=== PATIENT | male | born 2000 | race Caucasian/White ===

== ENCOUNTER 2024-09-06 01:54 | Emergency (ER) | payer SELFPAY ==
--- NOTE | ~2024-09-06 | CT_ITS ---
CT scan of the Neck Technique: 2.5 mm axial scans were obtained through the neck after intravenous administration of 75 c c Omnipaque 350. Coronal and sagittal reconstructions of the neck were obtained. Dose reduction techn ique was used on this scan by utilizing automated exposure control and iterative reconstruction techn ique. The dose-length product (DLP) was 409.33 mGy-cm. Clinical History: Right tonsillar swelling Findings: There is no evidence of any significant cervical lymphadenopathy. Several small, nonenlarged jugulo- digastric and posterior cervical lymph nodes are noted bilaterally. Parapharyngeal spaces appear norm al bilaterally. The parotid and submandibular glands appear normal. The pharyngeal mucosal spaces appear normal. No soft tissue masses are seen in the neck. The thyroid gland appears normal. Images of the lung apices reveal no abnormalities. Impression: No significant abnormalities noted. Reviewed, dictated and finalized at [facility]. Impression: No significant abnormalities noted.
[2024-09-06 01:59] VITALS: BP 134/94; PULSE 83; RESP 15; TEMP 36.9; O2SAT 100
--- NOTE | 2024-09-06 02:15 | ED.GENADULT ---
HPI - General Adult General Chief complaint: Unspecified Stated complaint: something lodged in throat Time Seen by Provider: 09/06/24 02:14 Source: patient, family and other Mode of arrival: ambulatory Limitations: no limitations History of Present Illness HPI narrative: Patient (he/him pronouns) presents with feeling like something is stuck in his throat. He has been coughing recently even prior to this but then while eating bread at [facility] felt like something got stuck. He has been trying to cough to bring it up. He has attempted to stick his finger down his throat a few times to force himself to vomit and states he can feel something hard. He has had a sore throat for several days prior to this. No fevers or chills. This has never happened before. Has not had to follow with gastroenterology or Otolaryngology. No recurrent strep episodes as a child and has not had a tonsillectomy. He had laryngitis earlier this week. Related Data Allergies Allergy/AdvReac Type Severity Reaction Status Date / Time No Known Allergies Allergy Verified 09/06/24 01:58 Exam Narrative: GENERAL: Well-appearing, well-nourished, and in no acute distress. HEAD: Normocephalic, atraumatic. EYES: Non injected, non icteric ENT: Nares clear, no rhinorrhea or epistaxis. Gross auditory acuity intact. Moist mucous membranes. Mild right tonsillar hypertrophy with slight redundant tissue behind it within which is a small white dot, suspect embedded tonsillar stone. Uvula midline. Moist mucous membranes Posterior oropharynx with mild hyperemia but no exudate. With induced maneuvers, patient's epiglottis can be visualized which is slightly enlarged but within range of normal variant, not obstructing and normal color. Vocal cords present and normal. Cartilage and arytenoids also visualized. No obstruction. NECK: Supple. No meningismus. Mild lymphadenopathy. No dysphonia. CHEST: Speaking in full sentences. No respiratory distress. Occasionally coughing. Airway patent. HEART: Regular rate and rhythm. . ABDOMEN: Soft, nondistended. No rigidity or guarding. Not peritoneal EXTREMITIES: Normal range of motion. No lower extremity edema. SKIN: Warm, dry, no rash. NEURO: No focal deficits. Alert and oriented. Answering questions. Following commands. Normal speech without aphasia or dysarthria. PSYCH: Normal mood and affect. Course Vital Signs Vital signs: Vital Signs Temperature 98.5 F 09/06/24 01:59 Pulse Rate 83 09/06/24 01:59 Respiratory Rate 15 09/06/24 01:59 Blood Pressure 134/94 H 09/06/24 01:59 Pulse Oximetry 100 09/06/24 01:59 Oxygen Delivery Room Air 09/06/24 01:59 Temperature 98.5 F 09/06/24 01:59 Pulse Rate 85 09/06/24 07:40 Respiratory Rate 18 09/06/24 07:40 Blood Pressure 120/69 09/06/24 07:40 Pulse Oximetry 97 09/06/24 07:40 Oxygen Delivery Room Air 09/06/24 01:59 Medical Decision Making MDM Narrative Medical decision making narrative: Patient presents with sensation of something launch/stuck in his throat. In the emergency department he is afebrile acceptable vital signs elevated diastolic blood pressure however. No leukocytosis. Strep negative. Viral swab negative. Workup largely unremarkable. Patient still having a slight sensation. Again, on initial exam nothing appreciated. During more focused exam, epiglottis is able to be visualized but not obstructed. Ondansetron administered to suppress gag reflex and oral benzocaine used to anesthetize posterior oropharynx. With patient holding 3Mac tongue blade, tongue held down and partial laryngoscopy performed for which structures are visualized without concern for acute process. There does appear to possibly be a tonsillar stone within redundant tissue behind right tonsil which is mildly hypertrophic. Other than this, I suspect patient has a degree of inflammation and thus the resulting sensation, especially after posterior oropharynx/larynx has had trauma from finger/tongue depressor insertion, etc. Patient given 1 time dose of IV steroids. Counseled on the workup which included visualization of structures, labs, and CT imaging. Patient and mother are reassured. I did encourage follow up with ENT if persistent symptoms , for flexible laryngoscopy/nasopharyngoscopy. Verified understanding and in agreement with the plan. Stable for discharge. Differential Diagnosis Differential Diagnosis: Food bolus, tonsillar stone, strep pharyngitis, tonsillitis, peritonsillar abscess , retropharyngeal abscess, compressive mass, epiglottitis Vital Signs Vital Signs: Vital Signs Temperature 98.5 F 09/06/24 01:59 Pulse Rate 83 09/06/24 01:59 Respiratory Rate 15 09/06/24 01:59 Blood Pressure 134/94 H 09/06/24 01:59 Pulse Oximetry 100 09/06/24 01:59 Oxygen Delivery Room Air 09/06/24 01:59 Temperature 98.5 F 09/06/24 01:59 Pulse Rate 85 09/06/24 07:40 Respiratory Rate 18 09/06/24 07:40 Blood Pressure 120/69 09/06/24 07:40 Pulse Oximetry 97 09/06/24 07:40 Oxygen Delivery Room Air 09/06/24 01:59 Lab Data Lab results reviewed: Yes I reviewed the patient's lab results. Lab results narrative: Normal BNP 09/06/24 03:36 09/06/24 03:36 Labs: Lab Results 09/06/24 Range/Units 03:36 WBC 8.8 (4.5-10.0) K/mm3 RBC 5.65 (4.6-6.20) M/mm3 Hgb 16.7 (14.0-18.0) g/dL Hct 50.7 (42.0-52.0) % MCV 89.7 (80-100) fl MCH 29.6 (26-34) pg MCHC 32.9 (32-36) g/dl RDW 12.2 (11.5-14.5) % Plt Count 216 (150-375) k/mm3 MPV 10.4 (7.4-10.4) fl Immature Gran % (Auto) 0.2 (0-0.5) % Neut % (Auto) 64.0 (45.5-73.1) % Lymph % (Auto) 24.7 (18.3-44.2) % [place] % (Auto) 10.3 H (2.6-8.5) % Eos % (Auto) 0.5 (0-4.4) % Baso % (Auto) 0.3 (0.2-1.2) % Lymph # (Auto) 2.17 (0.9-3.2) K/mm3 [place] # (Auto) 0.9 H (0.1-0.6) K/mm3 Eos # (Auto) 0.0 (0-0.3) K/mm3 Baso # (Auto) 0.0 (0.0-0.1) K/mm3 Abs Immat Gran (auto) 0.02 (0.00-0.031) K/mm3 Absolute Neuts (auto) 5.6 (1.3-6.7) K/mm3 Absolute Nucleated RBC 0.000 (0.0-0.012) K/mm3 Nucleated RBC % 0.0 (0.0-0.2) % Sodium 141 (137-145) mmol/L Potassium 3.7 (3.4-5.0) mmol/L Chloride 104 (98-107) mmol/L Carbon Dioxide 30 (22-30) mmol/L Anion Gap 7 (4-12) mmol/L BUN 11 (9-20) mg/dL Creatinine 0.85 (0.7-1.3) mg/dL Estim Creat Clear Calc 116 ml/min Estimated GFR > 60 (59 - ) Glucose 110 (65-110) mg/dL Calcium 9.2 (8.4-10.2) mg/dL Influenza A (RT-PCR) Negative (Negative) Influenza B (RT-PCR) Negative (Negative) RSV (RT-PCR) Negative (Negative) SARS-CoV-2 RNA (RT-PCR) Negative (Negative) Group A Strep (PCR) Not detected (Negative) Imaging Data Radiologist's impression: Impressions Soft Tissue Neck CT 09/06/24 06:27 Impression: No significant abnormalities noted. Discharge Plan Discharge Clinical Impression: Hypertrophy of tonsil, Tonsil stone Patient Disposition: Home Condition: Stable Instructions: Antibiotic Form, Tonsillitis (ED) Additional Instructions: As we discussed, although the tonsil is slightly swollen and with a possible tonsllar stone, the airway and other associated structures are normal in appearance. You received a dose of steroid. This should help with the inflammation. If not improving over the next several days, you can follow-up with the pearl diver/ornamental metal worker apprentice listed below. Return to the emergency department any new worsening uncontrolled symptoms. Patient Language: Yoruba Follow-up/Referrals: Chris Gilbert MD [Physician] - UNKNOWN,DOCTOR [Primary Care Provider] - Stand Alone Forms: Work/School Release IP Time of Disposition: 07:48
--- OUTSIDE RECORDS SUMMARY | 2024-09-06 02:40 | XMS_ITS | Clinical Summary ---
Author Organization [facility] Address [address] [place] [address] Care Team Providers Care Tilting Head Band Sawyer Name Role Phone No, Physician Primary Care Provider [phone] Allergies No known active allergies Medications syringe, disposable, (BD Luer-Charlee Syringe) 1 mL syringe Use to inject testosterone as directed 25 each 11/26/19 23 Active needle, disp, 23 gauge (BD Specialty Use [place]) 23 gauge x 1 1/4 needle Use to inject testosterone intramuscularly 25 each 11/26/19 23 Active alcohol swabs pads, medicated Cleanse skin before injection 100 each 11/26/19 23 Active syringe with needle (BD Luer-Charlee Syringe) 3 mL 25 gauge x 1 syringe Use to inject Testosterone IM every 7 days. 25 each 12/13/19 23 Active insulin syringe-needle U-100 1 mL 29 gauge syringe Use to inject 1-4 times daily as directed 100 each 06/09/19 24 Active syringe, disposable, 3 mL syringe Use one per week to draw and inject testosterone as directed. 12 each 06/12/19 24 Active testosterone cypionate (DEPO-TESTOTER ONE) 200 mg/mL injection Inject 0.5 mL (100 mg total) into the muscle as instructed once a week Single use vials; discard after one use; dispense four monthly 4 mL 3 06/22/19 25 025 Active Active Problems Problem Noted Date Diagnosed Date Transgender 11/25/2022 Assessment & Plan (06/21/2024 5:33 PM TENTMAKER): 23 y.o. patient confirms a marked incongruence between experienced/expressed gender and greg gender of at least 6 mo in duration, as manifested by at least two of the followin. A marked incongruence between one s experienced/expressed gender and primary and/or secondary sex characteristics (or in young adolescents, the anticipated secondary sex characteristics) 2. A strong desire to be rid of one s primary and/or secondary sex characteristics because of a marked incongruence with one s experienced/expressed gender' 3. A strong desire for the primary and/or secondary sex characteristics of the other gender 4. A strong desire to be of the other gender (or some alternative gender different from one s designated gender) 5. A strong desire to be treated as the other gender (or some alternative gender different from one s designated gender) 6. A strong conviction that one has the typical feelings and reactions of the other gender (or some alternative gender different from one s designated gender) We discussed anticipated effects of therapy and anticipated time frame Effect Onset Maximum Skin oiliness/acne 1-6 mo 1-2 y Facial/body hair growth 6-12 mo 4-5 y Scalp hair loss 6-12 mo --a Increased muscle mass/strength 6-12 mo 2-5 y Fat redistribution 1-6 mo 2-5 y Cessation of menses 1-6 mo --b Clitoral enlargement 1-6 mo 1-2 y Vaginal atrophy 1-6 mo 1-2 y Deepening of voice 6-12 mo 1-2 y We discussed potential risks of therapy including: mood instability, worsening of sleep apnea, erythrocytosis, liver dysfunction, coronary artery disease, cerebrovascular disease, hypertension, breast/uterine cancer. We discussed options for fertility preservation. He is not interested in fertility preservation at this time. We discussed the necessity of reliable contraception to prevent if intercourse with cis gender males. He has good insight and understanding of risks/benefits of gender reaffirming therapy. Understands that some effects are irreversible: deepening of voice, clitoromegaly, male pattern baldness. Based on my assessment, he is good candidate for testosterone. Latest labs: Lab Results Component Value Date ESTRADIOL 40.9 09/15/2023 Lab Results Component Value Date TESTOSTERONE 552.0 (H) 09/15/2023 Lab Results Component Value Date HGB 16.3 (H) 09/15/2023 HCT 48.5 (H) 09/15/2023 Last office visit he felt like masculinizing effects hit a plateau and considering a dose increase; however, hormone levels were within target range but we could try an incremental increase in dose. Also, suggested trying insulin syringes to inject hormones as he has struggled with injections Plan: 1) Hormone therapy - INCREASE testosterone cypionate 75 -> 100 mg (0.35 -> 0.5 ml total) IM or SC q week Counseled on the importance of consistent hormone adherence 2) Labs - check testosterone, estradiol, CBC Baseline and every 3 months x 1 year, then every 6 months Testosterone level in mid injection interval after 6 weeks of therapy (peak = 24-48 h post-injection) Goal testosterone: 400-700 ng/dl Goal estradiol: < 50 pg/ml CBC Hct < 54% 3) Cancer screening - Pap q3-5 years (if cervix present, establish care with Corporate Treasury Analyst) and Breast (if present) Assessment & Plan (09/15/2023 2:25 PM CDT): 22 y.o. patient confirms a marked incongruence between experienced/expressed gender and gender of at least 6 mo in duration, as manifested by at least two of the followin. A marked incongruence between one s experienced/expressed gender and primary and/or secondary sex characteristics (or in young adolescents, the anticipated secondary sex characteristics) 2. A strong desire to be rid of one s primary and/or secondary sex characteristics because of a marked incongruence with one s experienced/expressed gender' 3. A strong desire for the primary and/or secondary sex characteristics of the other gender 4. A strong desire to be of the other gender (or some alternative gender different from one s designated gender) 5. A strong desire to be treated as the other gender (or some alternative gender different from one s designated gender) 6. A strong conviction that one has the typical feelings and reactions of the other gender (or some alternative gender different from one s designated gender) We discussed anticipated effects of therapy and anticipated time frame Effect Onset Maximum Skin oiliness/acne 1-6 mo 1-2 y Facial/body hair growth 6-12 mo 4-5 y Scalp hair loss 6-12 mo --a Increased muscle mass/strength 6-12 mo 2-5 y Fat redistribution 1-6 mo 2-5 y Cessation of menses 1-6 mo --b Clitoral enlargement 1-6 mo 1-2 y Vaginal atrophy 1-6 mo 1-2 y Deepening of voice 6-12 mo 1-2 y We discussed potential risks of therapy including: mood instability, worsening of sleep apnea, erythrocytosis, liver dysfunction, coronary artery disease, cerebrovascular disease, hypertension, breast/uterine cancer. We discussed options for fertility preservation. He is not interested in fertility preservation at this time. We discussed the necessity of reliable contraception to prevent if intercourse with cis gender males. He has good insight and understanding of risks/benefits of gender reaffirming therapy. Understands that some effects are irreversible: deepening of voice, clitoromegaly, male pattern baldness. Based on my assessment, he is good candidate for testosterone. Lab Results Component Value Date ESTRADIOL 32.8 06/09/2023 Lab Results Component Value Date TESTOSTERONE 275.5 (H) 06/09/2023 Feels like masculinizing effects have hit plateau and interested in increasing dose; will re-assess hormone levels today and try incremental increase. Also, suggest trying insulin syringes to inject hormones as he has struggled with injections Plan: 1) Hormone therapy - CONTINUE testosterone cypionate 75 mg (0.35 ml total) IM or SC q week 2) Labs - check testosterone, estradiol, CBC Baseline and every 3 months x 1 year, then every 6 months Testosterone level in mid injection interval after 6 weeks of therapy Goal testosterone: 400-700 ng/dl Goal estradiol: < 50 pg/ml CBC Hct < 54% 3) Cancer screening - Pap q3-5 years (if cervix present, establish care with Corporate Treasury Analyst) and Breast (if present) Assessment & Plan (06/09/2023 2:47 PM TENTMAKER): 22 y.o. patient confirms a marked incongruence between experienced/expressed gender and greg gender of at least 6 mo in duration, as manifested by at least two of the followin. A marked incongruence between one s experienced/expressed gender and primary and/or secondary sex characteristics (or in young adolescents, the anticipated secondary sex characteristics) 2. A strong desire to be rid of one s primary and/or secondary sex characteristics because of a marked incongruence with one s experienced/expressed gender' 3. A strong desire for the primary and/or secondary sex characteristics of the other gender 4. A strong desire to be of the other gender (or some alternative gender different from one s designated gender) 5. A strong desire to be treated as the other gender (or some alternative gender different from one s designated gender) 6. A strong conviction that one has the typical feelings and reactions of the other gender (or some alternative gender different from one s designated gender) We discussed anticipated effects of therapy and anticipated time frame Effect Onset Maximum Skin oiliness/acne 1-6 mo 1-2 y Facial/body hair growth 6-12 mo 4-5 y Scalp hair loss 6-12 mo --a Increased muscle mass/strength 6-12 mo 2-5 y Fat redistribution 1-6 mo 2-5 y Cessation of menses 1-6 mo --b Clitoral enlargement 1-6 mo 1-2 y Vaginal atrophy 1-6 mo 1-2 y Deepening of voice 6-12 mo 1-2 y We discussed potential risks of therapy including: mood instability, worsening of sleep apnea, erythrocytosis, liver dysfunction, coronary artery disease, cerebrovascular disease, hypertension, breast/uterine cancer. We discussed options for fertility preservation. He is not interested in fertility preservation at this time. We discussed the necessity of reliable contraception to prevent if intercourse with cis gender males. He has good insight and understanding of risks/benefits of gender reaffirming therapy. Understands that some effects are irreversible: deepening of voice, clitoromegaly, male pattern baldness. Based on my assessment, he is good candidate for testosterone. He has NOT noticed any of following changes since starting masculinizing hormone therapy: cessation of menstruation (within 2 to 6 months of starting treatment), deepening of voice, increase in facial and body hair growth, body fat redistribution, increased muscle mass, clitoral enlargement, vaginal dryness. He has also noticed significant improvement in psychological and social well-being, along with eased distress related to gender. Latest hormone levels (11/25/2022 baseline before [facility] -> 03/03/2023): Testosterone = 51.1 -> 245 (target 400-700 ng/dl) Estradiol = 48.2-> 95.6 (target < 50 pg/ml) CBC Hct < 54% Feels like masculinizing effects have hit plateau and interested in increasing dose; will re-assess hormone levels today and try incremental increase. Also, suggest trying insulin syringes to inject hormones as he has struggled with injections Plan: 1) Hormone therapy - INCREASE testosterone cypionate 50 -> 75 mg (0.25 -> 0.35 cc total) IM or SC q week 2) Labs - check testosterone, estradiol, CBC Baseline and every 3 months x 1 year, then every 6 months Testosterone level in mid injection interval after 6 weeks of therapy Goal testosterone: 400-700 ng/dl Goal estradiol: < 50 pg/ml CBC Hct < 54% 3) Cancer screening - Pap q3-5 years (if cervix present, establish care with Corporate Treasury Analyst) and Breast (if present) Assessment & Plan (03/03/2023 3:01 PM TENTMAKER): 22 y.o. patient confirms a marked incongruence between experienced/expressed gender and greg gender of at least 6 mo in duration, as manifested by at least two of the followin. A marked incongruence between one s experienced/expressed gender and primary and/or secondary sex characteristics (or in young adolescents, the anticipated secondary sex characteristics) 2. A strong desire to be rid of one s primary and/or secondary sex characteristics because of a marked incongruence with one s experienced/expressed gender' 3. A strong desire for the primary and/or secondary sex characteristics of the other gender 4. A strong desire to be of the other gender (or some alternative gender different from one s designated gender) 5. A strong desire to be treated as the other gender (or some alternative gender different from one s designated gender) 6. A strong conviction that one has the typical feelings and reactions of the other gender (or some alternative gender different from one s designated gender) We discussed anticipated effects of therapy and anticipated time frame Effect Onset Maximum Skin oiliness/acne 1-6 mo 1-2 y Facial/body hair growth 6-12 mo 4-5 y Scalp hair loss 6-12 mo --a Increased muscle mass/strength 6-12 mo 2-5 y Fat redistribution 1-6 mo 2-5 y Cessation of menses 1-6 mo --b Clitoral enlargement 1-6 mo 1-2 y Vaginal atrophy 1-6 mo 1-2 y Deepening of voice 6-12 mo 1-2 y We discussed potential risks of therapy including: mood instability, worsening of sleep apnea, erythrocytosis, liver dysfunction, coronary artery disease, cerebrovascular disease, hypertension, breast/uterine cancer. We discussed options for fertility preservation. He is not interested in fertility preservation at this time. We discussed the necessity of reliable contraception to prevent if intercourse with cis gender males. He has good insight and understanding of risks/benefits of gender reaffirming therapy. Understands that some effects are irreversible: deepening of voice, clitoromegaly, male pattern baldness. Based on my assessment, he is good candidate for testosterone. He has NOT noticed any of following changes since starting masculinizing hormone therapy: cessation of menstruation (within 2 to 6 months of starting treatment), deepening of voice, increase in facial and body hair growth, body fat redistribution, increased muscle mass, clitoral enlargement, vaginal dryness. He has also noticed significant improvement in psychological and social well-being, along with eased distress related to gender. Latest hormone levels (11/25/2022 baseline before [facility]): Testosterone = 51.1 (target 400-700 ng/dl) Estradiol = 48.2 (target < 50 pg/ml) CBC Hct < 54% Plan: 1) Hormone therapy - testosterone cypionate 25 -> 50 mg mg (0.25 cc total) IM or SC q week 2) Labs - check testosterone, estradiol, CBC Baseline and every 3 months x 1 year, then every 6 months Testosterone level in mid injection interval after 6 weeks of therapy Goal testosterone: 400-700 ng/dl Goal estradiol: < 50 pg/ml CBC Hct < 54% 3) Cancer screening - Pap q3-5 years (if cervix present, establish care with Corporate Treasury Analyst) and Breast (if present) Assessment & Plan (11/25/2022 2:54 PM CDT): 22 y.o. patient confirms a marked incongruence between experienced/expressed gender and gender of at least 6 mo in duration, as manifested by at least two of the followin. A marked incongruence between one s experienced/expressed gender and primary and/or secondary sex characteristics (or in young adolescents, the anticipated secondary sex characteristics) 2. A strong desire to be rid of one s primary and/or secondary sex characteristics because of a marked incongruence with one s experienced/expressed gender' 3. A strong desire for the primary and/or secondary sex characteristics of the other gender 4. A strong desire to be of the other gender (or some alternative gender different from one s designated gender) 5. A strong desire to be treated as the other gender (or some alternative gender different from one s designated gender) 6. A strong conviction that one has the typical feelings and reactions of the other gender (or some alternative gender different from one s designated gender) We discussed anticipated effects of therapy and anticipated time frame Effect Onset Maximum Skin oiliness/acne 1-6 mo 1-2 y Facial/body hair growth 6-12 mo 4-5 y Scalp hair loss 6-12 mo --a Increased muscle mass/strength 6-12 mo 2-5 y Fat redistribution 1-6 mo 2-5 y Cessation of menses 1-6 mo --b Clitoral enlargement 1-6 mo 1-2 y Vaginal atrophy 1-6 mo 1-2 y Deepening of voice 6-12 mo 1-2 y We discussed potential risks of therapy including: mood instability, worsening of sleep apnea, erythrocytosis, liver dysfunction, coronary artery disease, cerebrovascular disease, hypertension, breast/uterine cancer. We discussed options for fertility preservation. He is not interested in fertility preservation at this time. We discussed the necessity of reliable contraception to prevent if intercourse with cis gender males. He has good insight and understanding of risks/benefits of gender reaffirming therapy. Understands that some effects are irreversible: deepening of voice, clitoromegaly, male pattern baldness. Based on my assessment, he is good candidate for testosterone. Plan: 1) Hormone therapy - testosterone cypionate 25 mg IM or SC q week 2) Labs - check testosterone, estradiol, CBC Baseline and every 3 months x 1 year, then every 6 months Testosterone level in mid injection interval after 6 weeks of therapy Goal testosterone: 400-700 ng/dl Goal estradiol: < 50 pg/ml CBC Hct < 54% 3) Cancer screening - Pap q3-5 years (if cervix present, establish care with Corporate Treasury Analyst) and Breast (if present) Encounters Date Type Department Care Team Description 06/24/2024 Telephone [facility] Endocrinology Metabolism and Lipid [address] [facility] [address] 5th [place] [address] [place] [address] Kassandra Pulido RMA 06/21/2024 7:00 PM TENTMAKER Lab [facility] Advanced [facility] Advanced Medicine (CAM) [address] [place] [address] Transgender 06/21/2024 4:20 PM TENTMAKER Office Visit [facility] Endocrinology Metabolism and Lipid [address] [facility] 5th [place] [address] [place] [phone] Gino Ellison MD PhD Transgender (Primary Dx) 06/11/2024 Telephone [facility] Endocrinology Metabolism and Lipid [address] [facility] 5th [place] [address] [place] [phone] Kassandra Pulido RMA from Last 3 Months Social History Tobacco Use Types Packs/Day Years Used Date Smoking Tobacco: Never Smokeless Tobacco: Never Tobacco Cessation:Counseling Given: Not Answered Comments Unknown Sex and Gender Information Value Date Recorded Sex Assigned at Not on file Legal Sex Unknown 09/06/2022 3:56 PM CDT Gender Identity Not on file Sexual Orientation Not on file Obstetrics History Last Filed Vital Signs Vital Sign Reading Time Taken Comments Blood Pressure 123/75 06/21/2024 4:43 PM TENTMAKER Pulse 76 06/21/2024 4:43 PM TENTMAKER Temperature 36.7 C (98.1 F) 06/21/2024 4:43 PM TENTMAKER Respiratory Rate - - Oxygen Saturation - - Inhaled Oxygen Concentration - - Weight 82.9 kg (182 lb 12.8 oz) 06/21/2024 4:43 PM TENTMAKER Height 172.7 cm (5' 8) 06/21/2024 4:43 PM TENTMAKER Body Mass Index 27.79 06/21/2024 4:43 PM TENTMAKER Plan of Treatment Health Maintenance Due Date Last Done Comments Depression Screening 2002 Hepatitis C Screening 2002 DTaP/Tdap/Td Vaccine (1 - Tdap) 2013 Varicella Vaccines (1 of 2 - 13+ 2-dose series) 09/30/2015 HPV Vaccines (1 - 3-dose series) 2017 Meningococcal B Vaccine (1 o f 2 - Standard) 2018 Hepatitis B Screening 2020 Regular Well Visit/Exam 18-64 2020 Influenza Vaccine (Season Ended) 2024 Meningococcal Vaccine Aged Out No danna melina eligible based on patient's age to complete this topic Pneumococcal vaccine <65 Aged Out No longer eligible based on patient's age to complete this topic Insurance [employer] [place] [employer] [place] Care Teams Tilting Head Band Sawyer Relationship Specialty Start Date End Date No, Physician PCP - General 09/06/22
--- OUTSIDE RECORDS SUMMARY | 2024-09-06 02:40 | XMS_ITS | Referral Summary ---
Author Organization [facility] Address [address] [place] [address] Care Team Providers Care Marriage Counselor Name Role Phone No, Physician Primary Care Provider [phone] Encounters Date Type Department Care Team Description 06/24/2024 Telephone [facility] Endocrinology Metabolism and Lipid [address] [place] [address] Kassandra Pulido RMA 06/21/2024 7:00 PM PARTS PROFESSIONAL Lab [facility] Advanced Medicine (CAM) [address] [place] [address] Transgender 06/21/2024 4:20 PM PARTS PROFESSIONAL Office Visit [facility] Endocrinology Metabolism and Lipid [address] [place] [id number] Gino Ellison MD PhD Transgender (Primary Dx) 06/11/2024 Telephone [facility] Endocrinology Metabolism and Lipid [address] [place] [address] Kassandra Pulido RMA from Last 3 Months Allergies No known active allergies Medications syringe, disposable, (BD Luer-Charlee Syringe) 1 mL syringe Use to inject testosterone as directed 25 each 11/26/19 23 Active needle, disp, 23 gauge (BD Specialty Use [place]) 23 gauge x 1 1/4 needle Use to inject testosterone intramuscularly 25 each 11/26/19 23 Active alcohol swabs pads, medicated Cleanse skin before injection 100 each 3 11/26/19 23 Active syringe with needle (BD Luer-Charlee Syringe) 3 mL 25 gauge x 1 syringe Use to inject Testosterone IM every 7 days. 25 each 3 12/13/19 23 Active insulin syringe-needle U-100 1 mL 29 gauge syringe Use to inject 1-4 times daily as directed 100 each 06/09/19 24 Active syringe, disposable, 3 mL syringe Use one per week to draw and inject testosterone as directed. 12 each 3 06/12/19 24 Active testosterone cypionate (DEPO-TESTOTER ONE) 200 mg/mL injection Inject 0.5 mL (100 mg total) into the muscle as instructed once a week Single use vials; discard after one use; dispense four monthly 4 mL 3 06/22/19 25 025 Active Active Problems Problem Noted Date Diagnosed Date Transgender 11/25/2022 Assessment & Plan (06/21/2024 5:33 PM PARTS PROFESSIONAL): 23 y.o. patient confirms a marked incongruence between experienced/expressed gender and grge gender of at least 6 mo in [...] years (if cervix present, establish care with Learning Administrator) and Breast (if present) Assessment & Plan [...] years (if cervix present, establish care with Learning Administrator) and Breast (if present) Assessment & Plan (06/09/2023 2:47 PM PARTS PROFESSIONAL): 22 y.o. patient confirms a marked incongruence [...] gender. Latest hormone levels (11/25/2022 baseline before [facility] -> 03/03/2023): Testosterone = 51.1 -> 245 [...] years (if cervix present, establish care with Learning Administrator) and Breast (if present) Assessment & Plan (03/03/2023 3:01 PM PARTS PROFESSIONAL): 22 y.o. patient confirms a marked incongruence [...] gender. Latest hormone levels (11/25/2022 baseline before [facility]): Testosterone = 51.1 (target 400-700 ng/dl) [...] years (if cervix present, establish care with Learning Administrator) and Breast (if present) Assessment & Plan [...] years (if cervix present, establish care with Learning Administrator) and Breast (if present) Social History Tobacco Use Types Packs/Day Years Used Date Smoking Tobacco: Never Smokeless Tobacco: Never Tobacco Cessation:Counseling Given: Not Answered Comments Unknown Sex and Gender Information Value Date Recorded Sex Assigned at Not on file Legal Sex Unknown 09/06/2022 3:56 PM CDT Gender Identity Not on file Sexual Orientation Not on file Last Filed Vital Signs Vital Sign Reading Time Taken Comments Blood Pressure 123/75 06/21/2024 4:43 PM PARTS PROFESSIONAL Pulse 76 06/21/2024 4:43 PM PARTS PROFESSIONAL Temperature 36.7 C (98.1 F) 06/21/2024 4:43 PM PARTS PROFESSIONAL Respiratory Rate - - Oxygen Saturation - - Inhaled Oxygen Concentration - - Weight 82.9 kg (182 lb 12.8 oz) 06/21/2024 4:43 PM PARTS PROFESSIONAL Height 172.7 cm (5' 8) 06/21/2024 4:43 PM PARTS PROFESSIONAL Body Mass Index 27.79 06/21/2024 4:43 PM PARTS PROFESSIONAL Plan of Treatment Not on file Insurance [facility] Care Teams Marriage Counselor Relationship Specialty Start Date End Date No, Physician PCP - General 09/06/22
[2024-09-06 03:41] VITALS: RESP 18
[2024-09-06 03:42] LABS: Basophils Percent Auto 0.3 % (0.2-1.2); Eosinophils Percent Auto 0.5 % (0-4.4); Hematocrit 50.7 % (42.0-52.0); Hemoglobin 16.7 g/dL (14.0-18.0); Immature Granulocyte Absolute 0.02 K/mm3 (0.00-0.031); Immature Granulocyte Percent A 0.2 % (0-0.5); Lymphocytes Absolute Auto 2.17 K/mm3 (0.9-3.2); Lymphocytes Percent Auto 24.7 % (18.3-44.2); Mean Corpuscular HGB Conc 32.9 g/dl (32-36); Mean Corpuscular Hemoglobin 29.6 pg (26-34); Mean Corpuscular Volume 89.7 fl (80-100); Mean Platelet Volume 10.4 fl (7.4-10.4); Monocytes Absolute Auto 0.9 K/mm3 (0.1-0.6); Monocytes Percent Auto 10.3 % (2.6-8.5); Neutrophils Absolute Auto 5.6 K/mm3 (1.3-6.7); Platelet Count Result 216 k/mm3 (150-375); Red Blood Count 5.65 M/mm3 (4.6-6.20); Red Cell Distribution Width 12.2 % (11.5-14.5); White Blood Count 8.8 K/mm3 (4.5-10.0)
[2024-09-06 03:52] LABS: Anion Gap 7 mmol/L (4-12); Blood Urea Nitrogen 11 mg/dL (9-20); Calcium 9.2 mg/dL (8.4-10.2); Carbon Dioxide 30 mmol/L (22-30); Chloride 104 mmol/L (98-107); Estimated CRCL calculation 116 ml/min; Estimated Glomerular Filt Rate > 60; Glucose 110 mg/dL (65-110); Potassium 3.7 mmol/L (3.4-5.0); Sodium 141 mmol/L (137-145)
[2024-09-06 04:06] LABS: Strep Group A RT-PCR NOT DETECTED (Negative)
[2024-09-06 04:17] LABS: Influenza A QL RT-PCR Negative (Negative); Influenza B QL RT-PCR Negative (Negative); RSV RNA, RT-PCR Negative (Negative); SARS-CoV-2 RNA PCR Negative (Negative)
[2024-09-06] MEDS: ONDANSETRON INJ 4 MG/2 ML VIAL IV PUSH (07:21)
[2024-09-06 07:40] VITALS: BP 120/69; PULSE 85; RESP 18; O2SAT 97
[2024-09-06] MEDS: methylPREDNISolone SOD SUCC 125 MG VIAL IV PUSH (07:55)
== END 2024-09-06 08:10 | disposition home or self-care (01) ==
PROVIDERS: Emergency Provider Student in an Organized Health Care Education/Training Program
DX: J35.1 Hypertrophy of tonsils (principal); J35.8 Other chronic diseases of tonsils and adenoids; Z20.822 Contact with and (suspected) exposure to COVID-19
CPT/HCPCS: 31525; 36415; 70491; 80048; 85025; 87637; 87651; 96374; 96375; 99284; A9270; J2405; J2919; Q9967